=== PATIENT | male | born 1955 | race Caucasian/White ===

== ENCOUNTER 2017-11-03 11:24 | Emergency (ER) | payer OTHER ==
[~2017-11-03] VITALS: Ht 185.4 cm; Wt 75.0 kg
[~2017-11-03 11:24] MED LIST: MECLIZINE25 MG PO
[2017-11-03] MEDS ORDERED: IBUPROFEN600 MG PO (12:12)
[2017-11-03] MEDS ORDERED: SILVADENE1 % EX (12:12)
[2017-11-03 12:20] VITALS: BP 141/84
== END 2017-11-03 12:20 | disposition home or self-care (01) | DRG 914 ==
LOC: ED 11:24
DX: S47.1XXA Crushing injury of right shoulder and upper arm, initial encounter (principal); S40.811A Abrasion of right upper arm, initial encounter; W31.82XA Contact with other commercial machinery, initial encounter; Y93.89 Activity, other specified; Y92.89 Other specified places as the place of occurrence of the external cause